=== PATIENT | male | born 1960 | race Caucasian/White ===

== ENCOUNTER 2017-02-14 12:28 | Day surgery (SDC) | payer BC ==
[~2017-02-14 12:28] MED LIST: RINGERS SOLUTION,LACTATED 1,000 ML IV PRN
--- OUTSIDE RECORDS SUMMARY | 2017-02-14 12:35 | XMS REPORT | Continuity of Care Document ---
:1960 Demographics Phone Unavailable Preferred Language Unknown Marital Status Unknown Congregation Affiliation Unknown Race Unknown Ethnic Group Unknown Author Organization [facility] ([facility]) Address [place] [address] Phone [phone] Care Team Providers Name Role Phone Unavailable Primary Care Provider Unavailable Source Comments This disclosure is being made pursuant to the Care Everywhere program, applicable federal and state laws, and may not contain all informaitonavailable regarding this patient.[facility] ([facility]) Active Allergies and Adverse Reactions Not on File Current Medications Not on file Active Problems Not on file Social History Tobacco Use Types Packs/Day Years Used Date Never Assessed Plan of Care Health Maintenance Due Date Last Done Comments HCV Screening 1960 Hepatitis B Vaccine (1 of 3 - Primary Series) 1960 Tdap Vaccine 12/23/1971 Lipid Disorder Screening 1978 MMR Vaccine 1978 Td Vaccine 1978 Colonoscopy 2010 Prostate Cancer Screening 2010 Influenza Vaccine: Seasonal (#1) 05/10/2016 Results from Last 3 Months Not on file
[2017-02-14] MEDS ORDERED: RINGERS SOLUTION,LACTATED 1,000 ML IV ONE (16:15)
[2017-02-14] MEDS ORDERED: RINGERS SOLUTION,LACTATED 1,000 ML IV PRN (16:42)
[2017-02-14 17:23] VITALS: BP 116/61
--- NOTE | 2017-02-14 18:54 | OR ---
Operative Report - Dictated Report Narrative: OPERATIVE REPORT DATE OF OPERATION: 02/14/2017 PREOPERATIVE DIAGNOSIS: No prior dedicated colon studies POSTOPERATIVE DIAGNOSIS: 3 mm polyp in the cecum, 3 mm polyp at the hepatic flexure, and 0.5 cm pedunculated polyp in the rectum (pathology pending). Diverticulosis OPERATION: Colonoscopy with hot biopsy forceps polypectomies 2 ( cecum and hepatic flexure). Snare polypectomy in the rectum SURGEON: Darnell Judge MD ANESTHESIA: PARESH Ferrera CRNA INDICATIONS FOR PROCEDURE: The patient is a 56-year-old male referred by Dr. Blackwell. The patient has had no previous dedicated colon studies. There is no family history of colon cancer. The patient is currently asymptomatic. FINDINGS: Significant residual solid stool. 0.5 cm rectal polyp. 3 mm polyps in the cecum and near the hepatic flexure. Diverticulosis NARRATIVE OF PROCEDURE: The patient was identified in the holding area, and prior to the administration of anesthetic, a multidisciplinary timeout was observed. With the patient in the left lateral position and after the administration of intravenous sedation, the perineum was inspected. There was no evidence of pilonidal disease or skin breakdown. The external appearance of the anus was normal. Sphincter tone was good. The flexible fiberoptic colonoscope was inserted into the rectum which was insufflated with air. The rectal mucosa and submucosal vascular pattern appeared normal. In the proximal rectum was a 0.5 cm pedunculated polyp. This was bypassed. The scope was advanced through the sigmoid colon, up the descending colon, and around the splenic flexure where the triangular haustral architecture of the transverse colon was seen. The scope was advanced across the transverse colon, around the hepatic flexure to the cecum, where the confluence of tenia and the ileocecal valve were identified. The mucosa at this level appeared normal. There was a 3 mm area of polypoid change on the apical cecal fold. This was biopsied and thoroughly destroyed with electrocautery. The polypectomy site appeared complete and hemostatic. As the scope was withdrawn to the hepatic flexure an additional 3 mm polyp on a fold was encountered. This was biopsied and thoroughly destroyed with electrocautery. The site was seen to be complete and hemostatic. The scope was then slowly withdrawn in a circular fashion so that all aspects of colonic mucosa were inspected. The colon was capacious in character but relatively normal in course. The haustral architecture appeared well preserved throughout with no evidence of external compression. The mucosa and submucosal vascular pattern appeared normal, specifically there was no gross evidence to suggest colitis or inflammatory bowel disease and no AV malformations were seen. There was pancolonic diverticulosis. There was a large amount of residual adherent stool present, precluding the exclusion of small polypoid lesions. The scope was gradually withdrawn to the level of the rectum. Polyp in the rectum was removed with cautery snare, retrieved, and submitted to pathology. The base of the polypectomy site appeared to be complete and hemostatic. As much insufflated air as possible was removed. The scope was withdrawn from the patient and the procedure terminated. The patient tolerated the anesthetic and procedure well without complication and was transferred back to the ambulatory surgery area awake and in stable condition. The patient remained stable throughout a period of postoperative observation. He denied abdominal discomfort, was able to tolerate by mouth intake, and was up without assistance. I shared the operative findings with the patient and he was given copies of the photographs which appear in the medical record. He was discharged home with instructions not to engage in hazardous activity today, but may resume normal activity tomorrow, and advance diet as tolerated. He is to continue those medications as listed in the history and physical exam. I made arrangements to contact him with the biopsy reports and will make additional recommendations for treatment and follow-up based upon those results. Reviewed and electronically signed
== END 2017-02-14 12:29 | disposition home or self-care (01) ==
LOC: AMB 12:28
PROVIDERS: ATTEND Surgery
PROC: 0DBL8ZX Excision of Transverse Colon, Via Natural or Artificial Opening Endoscopic, Diagnostic (ICD-10-PCS; 2017-02-14)
PROC: 0DBP8ZX Excision of Rectum, Via Natural or Artificial Opening Endoscopic, Diagnostic (ICD-10-PCS; 2017-02-14)
PROC: 0DBH8ZX Excision of Cecum, Via Natural or Artificial Opening Endoscopic, Diagnostic (ICD-10-PCS; principal; 2017-02-14 14:15)
DX: Z12.11 Encounter for screening for malignant neoplasm of colon (principal); D12.0 Benign neoplasm of cecum; D12.3 Benign neoplasm of transverse colon; K62.1 Rectal polyp; Z68.29 Body mass index [BMI] 29.0-29.9, adult; Z87.891 Personal history of nicotine dependence